=== PATIENT | female | born 1990 | race Caucasian/White ===

== ENCOUNTER 2025-04-05 17:35 | Emergency (ER) | payer SELFPAY ==
[~2025-04-05] VITALS: Ht 162.6 cm; Wt 90.7 kg
[2025-04-05 18:00] VITALS: PULSE 86; RESP 16; TEMP 98.4
[2025-04-05 19:26] LABS: BASOPHILS % 0.4 % (0.0-1.0); EOSINOPHILS % 2.8 % (0.0-6.0); LYMPHOCYTES % 26.8 % (18.0-39.1); MONOCYTES % 5.5 % (4.4-11.3); NEUTROPHILS % 63.9 % (38.7-80.0); RED CELL DISTRIBUTION WIDTH 13.8 % (11.7-14.4)
[2025-04-05] MEDS: SODIUM CHLORIDE 0.9% 1000ML 1,000 ML IV STA (19:30)
[2025-04-05] MEDS: METOCLOPRAMIDE HCL 10 MG/2ML VIAL IV STA (19:30)
[2025-04-05] MEDS: DIPHENHYDRAMINE HCL INJ 50 MG/ML VIAL IV STA (19:30)
[2025-04-05] MEDS: METHYLPREDNISOLONE SOD SUCC 125 MG/2ML VIAL IV STA (19:31)
[2025-04-05] MEDS: KETOROLAC TROMETHAMINE 30 MG/ML VIAL IV STA (19:31)
[2025-04-05 19:48] LABS: EST GLOMERULAR FILTRATION RATE 117.0 ML/MIN (>=60)
[2025-04-05 20:47] LABS: CORONAVIRUS COVID-19 AG NEGATIVE (NEGATIVE)
[2025-04-05] MEDS ORDERED: FIORICET 50-301 EACH PO (20:49)
[2025-04-05 21:31] VITALS: BP 121/75; PULSE 80; RESP 18; TEMP 98; O2SAT 98
== END 2025-04-05 21:37 | disposition home or self-care (01) ==
LOC: ER 17:47
DX: R51.9 Headache, unspecified (principal); R20.0 Anesthesia of skin; R94.31 Abnormal electrocardiogram [ECG] [EKG]
CPT/HCPCS: 36415; 70450; 71045; 72125; 80053; 82550; 83690; 83880; 84484; 85025; 87426; 93005; 99283; J1200; J1885; J2765; J2919; J7030

== ENCOUNTER 2025-05-13 11:46 | Emergency (ER) | payer OTHER, MEDICAID ==
[~2025-05-13] VITALS: Ht 162.6 cm; Wt 86.4 kg
[~2025-05-13 11:46] MED LIST: FIORICET 50-301 EACH PO
[2025-05-13] MEDS ORDERED: METROGEL60 GM PV (15:43)
[2025-05-13] MEDS ORDERED: LIDOCAINE HCL 10 MG/ML VIAL INJ ONE (15:57)
[2025-05-13] MEDS ORDERED: DOXYCYCLINE HY100 MG PO (15:59)
[2025-05-13] MEDS: CEFTRIAXONE 500 MG VIAL IM ONE (16:03)
[2025-05-13 16:04] VITALS: PULSE 59; RESP 16; TEMP 98.2; O2SAT 97
[2025-05-13] MEDS: AZITHROMYCIN 250 MG TAB PO ONE (16:04)
[2025-05-15 08:13] LABS: CHLAMYDIA NUC AMP Negative (Negative)
== END 2025-05-13 16:15 | disposition home or self-care (01) ==
LOC: FSED 11:50
DX: R10.20 Pelvic and perineal pain unspecified side (principal); N20.0 Calculus of kidney; N89.8 Other specified noninflammatory disorders of vagina; R30.0 Dysuria
CPT/HCPCS: 74176; 76830; 76856; 81003; 81025; 87491; 87591; 93976; 99284; J0696